=== PATIENT | male | born 1935 | race Caucasian/White ===

== ENCOUNTER 2019-03-02 17:10 | Emergency (ER) | payer MEDICARE, OTHER ==
[~2019-03-02] VITALS: Ht 177.8 cm; Wt 66.5 kg
[~2019-03-02 17:10] MED LIST: AMOX-441 PO; CHOL10002 PO; CLON0.1T PO; LANTUS INSULIN SQ; LIPA1CAP18 PO; MULT-785 PO; NEBI20TA2 PO; NOR5T PO; URSO300C8 PO
--- NOTE | 2019-03-02 18:36 | NUR ---
NOTIFIED MD SLADE OF PT'S CURRENT STATUS. IV IN PLACE, LABS DRAWN, L EYE FIXED WITH SIZE DIFFERENCE FROM RIGHT - SEE GROUP ASSESSMENT.
--- NOTE | 2019-03-02 18:37 | NUR ---
PER NO LABS INDICATED AT THIS TIME
[2019-03-02 20:25] VITALS: BP 161/67
--- NOTE | 2019-03-02 20:30 | NUR ---
REPORT GIVEN TO AUDREY SAINZ AT [facility] ED
--- NOTE | 2019-03-02 21:21 | NUR ---
REPORT GIVEN TO ESE FLIGHT CREW. PT PACKETS GIVEN TO CREW WELL.
== END 2019-03-02 21:25 | disposition short-term general hospital (02) ==
LOC: ER 17:12
DX: I62.03 Nontraumatic chronic subdural hemorrhage (principal); I10 Essential (primary) hypertension; Z98.42 Cataract extraction status, left eye; Z86.73 Personal history of transient ischemic attack (TIA), and cerebral infarction without residual deficits; Z90.89 Acquired absence of other organs; Z79.899 Other long term (current) drug therapy
CPT/HCPCS: 82948; 99285